=== PATIENT | female | born 1975 | race African-American/Black ===

== ENCOUNTER 2017-07-11 12:20 | Emergency (ER) | payer OTHER ==
[~2017-07-11] VITALS: Ht 162.6 cm; Wt 92.0 kg
[2017-07-11 15:14] LABS: HEMATOCRIT 40.3 % (36.0-46.0); HEMOGLOBIN 13.1 G/DL (11.9-15.5); MCH 28.6 PG (29.0-34.0); MCHC 32.5 G/DL (30.0-36.0); PLATELET COUNT 243 K/uL (156-360); RBC DIS.WIDTH-CV 13.4 % (11.8-14.6); RBC DIS.WIDTH-SD 43.5 % (39-53); RED BLOOD COUNT 4.58 M/uL (3.80-5.20); WHITE BLOOD COUNT 8.9 K/uL (4.1-10.2)
[2017-07-11 15:22] LABS: CHLORIDE 106 mEq/L (99-109); POTASSIUM 3.8 mEq/L (3.7-5.4); SODIUM 139 mEq/L (136-147)
[2017-07-11 15:24] LABS: GLUCOSE 90 mg/dL (70-99)
[2017-07-11 15:28] LABS: CREATININE 0.8 mg/dL (0.6-1.3)
[2017-07-11 15:29] LABS: UREA NITROGEN (BUN) 5 mg/dL (9-23)
[2017-07-11 15:31] LABS: GFR ESTIMATE (CALCULATED) > 59 mL/min/
[2017-07-11 15:36] LABS: QUANTITATIVE HCG < 4.0 MIU/ML
[2017-07-11] MEDS ORDERED: MOTRIN800 MG PO (15:50)
[2017-07-11] MEDS ORDERED: REGLAN10 MG PO (15:50)
[2017-07-11 18:31] VITALS: BP 137/90
== END 2017-07-11 18:31 | disposition home or self-care (01) ==
LOC: EME 12:20
PROVIDERS: Nurse Practitioner Family
DX: R51 Headache (principal); R11.2 Nausea with vomiting, unspecified; G43.909 Migraine, unspecified, not intractable, without status migrainosus; F17.200 Nicotine dependence, unspecified, uncomplicated; Z88.8 Allergy status to other drugs, medicaments and biological substances
CPT/HCPCS: 70450; 80048; 84702; 85027; 99281; 99284; J1100; J1200; J2765; J7030